=== PATIENT | female | born 1970 | race Caucasian/White ===

== ENCOUNTER → 2017-11-08 10:43 | Outpatient (CLI) | payer BC, SELFPAY ==
[2017-11-08 12:34] LABS: Vitamin D,25 Hydroxy 65.6 ng/mL (29.95-100.01)
[2017-11-08 12:39] LABS: ALB/GLOB Ratio 0.8 RATIO (0.9-2.4); AST(SGOT) 23 U/L (15-37); Alanine Aminotransfer ALT/SGPT 24 U/L (13-56); Albumin, Serum 3.7 g/dL (3.2-5.0); Alkaline Phosphatase 104 U/L (45-117); Anion Gap 6 (5-15); BUN 24 mg/dL (7-18); BUN/Creat Ratio 23.3 RATIO (10-20); Calcium,Total 9.4 mg/dL (8.5-10.1); Chloride 105 mmol/L (98-107); Cholesterol 257 mg/dL (200); Creatinine, Serum 1.03 mg/dL (0.55-1.02); EST Glomerular Filtration Rate 61 mL/min (>60); Est Glom Filt Rate - Afr Amer 74 mL/min (>60); Globulin 4.4 g/dL (2.2-4.2); Glucose 83 mg/dL (74-106); High Density Lipoprotein 50 mg/dL; Potassium 4.1 mmol/L (3.5-5.1); Protein, Total 8.1 g/dL (6.4-8.2); Sodium Level 139 mmol/L (136-145); Thyroid Stim Hormone (TSH) 1.73 uIU/mL (0.358-3.74); Triglycerides 143 mg/dL; Very Low Density Lipoprotein 29 mg/dL (5-40)
== END ==
PROVIDERS: Family Provider Family Medicine; PCP Family Medicine; Visit Provider Family Medicine
DX: R00.2 Palpitations (principal); Z13.220 Encounter for screening for lipoid disorders; Z13.21 Encounter for screening for nutritional disorder
CPT/HCPCS: 36415; 80053; 80061; 82306; 84443

== ENCOUNTER → 2018-03-15 14:12 | Outpatient (CLI) | payer BC, SELFPAY ==
--- NOTE | 2018-03-15 | EMB_PTH ---
PATIENT: MARIA A BEGUM LOC: JERE #:[id number] AGE/SX: 54/F ROOM: RE03/15/[address]: Dr. Lilian Pickard MD : 1970 BED: DIS: SPEC #: [id number] RECD: 03/15/18 14:37 STATUS: VERONA REInes #: [id number] PENNIE: 03/15/18 00:[address]: Lilian Toney DEPT: SURGICAL PATHOLOGY RECD BY: Roque Beal ENTERED: 03/15/18 14:37 SP TYPE: ENDOM BX/C EFREN DR: Dr. Bernabe Roberto MD Tissues: Endometrium, NOS Procedures: Surgery Specimen Level IV HEADER OPERATION: Endometrial biopsy PRE-OP DIAGNOSIS: N92.1; LMP 02/22/18 TISSUE SUBMITTED: Endometrial biopsy MICROSCOPIC DIAGNOSIS Endometrial biopsy: Mildly disordered endometrium with weakly proliferative pattern, glandular and stromal breakdown and surface syncytial change. No evidence of endometrial hyperplasia. CE:li 03/16/18 COMMENT Case has been reviewed in consultation with Dr. Michele who concurs with the above diagnosis. IDC:AM MICROSCOPIC DESCRIPTION Slides are reviewed. GROSS DESCRIPTION Received is one container labeled with the patient's name and not further designated. The specimen consists of multiple irregular fragments of light corcoran soft tissue that in aggregate measure 2.4 x 1.0 x 0.3 cm. The specimen is totally submitted in one cassette. / AM:li 03/15/18 TC:5 CPT: 24230
[2018-03-18 13:54] LABS: HPV APTIMA, High Risk Negative (Negative)
--- OUTSIDE RECORDS SUMMARY | 2018-05-17 19:49 | XMS RPT_ITS ---
:1970 Author Organization [facility] Care Team Providers Name Role Phone Lilian Lazaro Attending Unavailable Lilian Lazaro Referring Unavailable Bernabe Roberto Primary Care Unavailable Bernabe Roberto Attending Unavailable Bernabe Roberto Referring Unavailable Bernabe Roberto Primary Care Unavailable PROBLEMS PROBLEMS DATE TYPE CONDITION / CODE ATTENDING STATUS SOURCE 03/15/2018 Unknown Z01.419 - Encounter Hussain Lazaro [place] for gynecological [facility] (general) (routine) Repository without abnormal findings / Z01.419(ICD-10) 03/15/2018 Unknown Z12.4 - Encounter Hussain Lazaro for screening for [facility] malignant neoplasm [facility] of cervix / Repository Z12.4(ICD-10) 03/15/2018 Unknown N92.1 - Excessive Tejas Active [place] and frequent [facility] menstruation with Hospital irregular cycle / Repository N92.1(ICD-10) PROCEDURES PROCEDURES No Procedure Records FoundRESULTS RESULTS PAP IG HPV APTIMA Collected: 03/15/2018 Status: F Source: [place] 16/18,45 10:00 AM [facility] REPOSITORY Order Comment: CYTOLOGY INFORMATION: - CLINICAL INFORMATION: - DATE LMP/MENOPAUSE: 02/22/18 - COLLECTION VIAL: Thin Prep 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 of containers..01 ThinPrep Vial TYPE CODE TESTS RESULT OUT OF RANGE REFERENCE UNITS LAB L7400.0800 . Normal DIAGN Comment Result Comment: NEGATIVE FOR INTRAEPITHELIAL LESION OR MALIGNANCY. SPECIMEN REPROCESSED FOR INTERPRETATION USING GLACIAL ACETIC ACID (GAA). LAB L7400.0900 . Normal ADEQ Comment Result Comment: Satisfactory for evaluation. Endocervical and/or squamous metaplastic cells (endocervical component) are present. Areas of partially obscuring blood are present. LAB L7400.1400 . Normal PERFORM Comment Result Comment: Emre Campbell, Bakery Team Leader (ASCP) LAB L7400.2575 . Normal TEST METHOD Comment Result Comment: This liquid based ThinPrep(R) pap test was screened with the use of an image guided system. LAB L7400.2600 . Normal . COMM LAB L7400.2700 . Normal PAPSMR Comment Result Comment: The Pap smear is a screening test designed to aid in the detection of premalignant and malignant conditions of the uterine cervix. It is not a diagnostic procedure and should not be used as the sole means of detecting cervical cancer. Both false-positive and false-negative reports do occur. LAB L7400.2760 Negative Normal HPV APTIMA, Negative HR Result Comment: This test detects fourteen high-risk HPV types (16/18/31/33/35/39/45/ 51/52/56/58/59/66/68) without differentiation. Performed at: [facility] [address] [id number] Ethics Instructor: Kaya Winn MD, Phone: [phone] Performed at: =[facility] [id number] Ethics Instructor: Kaya Winn MD, Phone: [phone] Performed By: #### L7400.0280 #### [facility] (refer to report for specific site) refer to report for address and phone number ENDOMETRIAL BX/CURETTINGS Observed: 03/15/2018 Status: F Source: [place] 12:00 AM [facility] REPOSITORY Patient: MARIA A BEGUM : 1970 (47/F) Acct Num: [id number] Phys: Tejas KANG,Summer Unit Num: [id number] Loc: LABSPEC Specimen: [id number] Received: 03/15/18 - 1437 Spec Type: ENDOM BX/C TISSUES 1 TISSUES: Endometrium, NOS COMMENT Case has been reviewed in consultation with Dr. Michele who concurs with the above diagnosis. IDC:AM GROSS DESCRIPTION Received is one container labeled with the patient's name and not further designated. The specimen consists of multiple irregular fragments of light corcoran soft tissue that in aggregate measure 2.4 x 1.0 x 0.3 cm. The specimen is totally submitted in one cassette. / AM: 03/15/18 TC:5 CPT: 67843 HEADER OPERATION: Endometrial biopsy PRE-OP DIAGNOSIS: N92.1; LMP 02/22/18 TISSUE SUBMITTED: Endometrial biopsy MICROSCOPIC DESCRIPTION Slides are reviewed. MICROSCOPIC DIAGNOSIS Endometrial biopsy: Mildly disordered endometrium with weakly proliferative pattern, glandular and stromal breakdown and surface syncytial change. No evidence of endometrial hyperplasia. CE: 03/16/18 Signed Bernabe Pool MD <signature on file> Performed By: #### PEMB #### [facility] [address] [place], [address] VITAMIN D,25 HYDROXY Collected: 11/08/2017 Status: F Source: [place] 10:47 AM [facility] REPOSITORY Order Comment: Order Date: 11/04/17 Order Info: [id number] - VITD25 TYPE CODE TESTS RESULT OUT OF RANGE REFERENCE UNITS LAB L506.1000 29.95-100.01 ng/mL Normal Vitamin D 65.6 25-OH Result Comment: Vitamin D 25(OH) Status Range Deficiency <20 ng/mL (50nmol/L) Insuffciency 20 - 30 ng/mL (50 - 75 nmol/L) Sufficiency 30 - 100 ng/mL (75 - 250 nmol/L) Toxicity >100 ng/mL (>250 nmol/L) Performed By: #### L506.1000, L500.4050, L500.4100, L501.9520 #### [facility] [address] [place], [address] COMPREHENSIVE METABOLIC Collected: 11/08/2017 Status: F Source: [place] FAUL[place]NER 10:47 AM [facility] REPOSITORY Order Comment: Order Date: 11/04/17 Order Info: 0786-1 - CMP Order Info: [id number] - LIPID Order Info: 3016-3 - TSH TYPE CODE TESTS RESULT OUT OF RANGE REFERENCE UNITS LAB L501.0100 74-106 mg/dL Normal GLU 83 Result Comment: Please note revised GLUCOSE reference range effective 2017. LAB L501.1000 7-18 mg/dL High BUN 24 LAB L501.1100 0.55-1.02 mg/dL High CREAT,SERUM 1.03 Result Comment: The validity of the calculated GFR AND GFRAA in patients over 70 years has not been determined. Clinical correlation is essential. LAB L501.1110 >60 mL/min Normal EST GFR 61 Result Comment: Non- GFR Calc LAB L501.1115 >60 mL/min Normal EST GFR - AA 74 Result Comment: GFR Calc LAB L501.1300 10-20 RATIO High BUN/CRE 23.3 LAB L501.1500 6.4-8.2 g/dL T Normal PROT 8.1 LAB L501.1800 3.2-5.0 g/dL Normal ALB 3.7 LAB L501.1950 2.2-4.2 g/dL High GLOB 4.4 LAB L501.2000 0.9-2.4 RATIO Low A/G 0.8 LAB L501.2200 8.5-10.1 mg/dL CA Normal 9.4 LAB L501.4100 15-37 U/L Normal AST 23 LAB L501.4305 45-117 U/L Normal ALK P 104 LAB L501.4405 13-56 U/L Normal ALT 24 LAB L501.4600 0.20-1.00 mg/dL T Normal BILI 0.30 LAB L501.5300 136-145 mmol/L NA Normal 139 LAB L501.5600 3.5-5.1 mmol/L K Normal 4.1 LAB L501.5900 98-107 mmol/L CL Normal 105 LAB L501.6100 21.0-32.0 mmol/L Normal CO2 28.0 LAB L501.6200 5-15 Normal GAP 6 Performed By: #### L506.1000, L500.4050, L500.4100, L501.9520 #### [facility] [address] [place], [place], [id number] LIPID PROFILE Collected: 11/08/2017 Status: F Source: [place] 10:47 AM [facility] REPOSITORY Order Comment: Order Date: 11/04/17 Order Info: [id number] - CMP Order Info: [id number] - LIPID Order Info: 3016-3 - TSH TYPE CODE TESTS RESULT OUT OF RANGE REFERENCE UNITS LAB L501.4900 200 mg/dL High CHOL 257 Result Comment: <200 mg/dL Desirable 200-240 mg/dL Borderline >240 mg/dL High Risk LAB L501.5000 mg/dL Normal TRIG 143 Result Comment: The drugs N-Acetylcysteine and Metamizole may falsely depress this assay. Serum Triglycerides Reference Interval Normal <150 mg/dL Borderline high 150 - 199 mg/dL High 200 - 499 mg/dL Very High > or = 500 mg/dL LAB L501.6400 mg/dL Normal HDL 50 Result Comment: The drugs N-Acetylcysteine and Metamizole may falsely depress this assay. Reference Range HDL <40 mg/dL Low HDL Cholesterol HDL >or= 60 mg/dL High HDL Cholesterol LAB L501.6500 0-130 mg/dL High LDL 178 LAB L501.6600 5-40 mg/dL Normal VLDL 29 Performed By: #### L506.1000, L500.4050, L500.4100, L501.9520 #### [facility] [address] [place], [place], [address] THYROID STIM HORMONE Collected: 11/08/2017 Status: F Source: [place] (TSH) 10:47 AM [facility] REPOSITORY Order Comment: Order Date: 11/04/17 Order Info: [id number] - CMP Order Info: [id number] - LIPID Order Info: 3016-3 - TSH TYPE CODE TESTS RESULT OUT OF RANGE REFERENCE UNITS LAB L501.9520 0.358-3.74 uIU/mL Normal TSH 1.73 Performed By: #### L506.1000, L500.4050, L500.4100, L501.9520 #### [facility] [address], [address] ALLERGIES ALLERGIES DATE TYPE / CODE NAME / CODE REACTION SEVERITY SOURCE 01/14/2013 Drug Sulfa Unknown Unknown [facility] Allergy/4160 (Sulf[facility] 85880(SNOMED Antibiotics)/ Repository CT) [id number](RX NORM) ENCOUNTERS ENCOUNTERS ADMIT/DISCHARGE ACCOUNT ADMITTING ENCOUNTER LOCATION SOURCE NUMBER CLASS 03/15/2018 [id number] Ambulatory [place] 5 [facility] ing:LABSPEC Repository 11/08/2017 [id number] Amb[place] [facility] ing:MTLAB Repository PAYERS PAYERS ENCOUNTER GUARANTOR PAYER SUBSCRIBER SOURCE 03/15/2018 MARIA A CLARKE Primary WHIT REEDDOB: [place] Insurance:[id number] [address]Ryd: [id number] Repository nicola Date:[id number] () [address], [place] [address]MY: 03/15/2018 Secondary NOT GIVENUNK [place] Insurance:SELF PAY [facility] Number: Effective Repository Date:2018-03-15 11/08/2017 MARIA A CLARKE Primary WHIT REEDDOB: [place] Insurance:[id number] [id number]: [id number] Repository nicola Date:[id number] () [address], [place] [address]OG: 11/08/2017 Secondary NOT GIVENUNK [place] Insurance:SELF PAY [facility] Number: Effective Repository Date:2017-11-08
== END ==
PROVIDERS: Family Provider Family Medicine; PCP Family Medicine; Referring Provider Obstetrics & Gynecology; Visit Provider Obstetrics & Gynecology
DX: Z12.4 Encounter for screening for malignant neoplasm of cervix (principal); N92.1 Excessive and frequent menstruation with irregular cycle
CPT/HCPCS: 87624; 88175; 88305; G0145

== ENCOUNTER 2018-06-19 17:49 | Emergency (ER) | payer BC, SELFPAY ==
[2018-06-19 17:50] VITALS: BP 153/89; PULSE 89; RESP 16; TEMP 36.8; BMI 33.6
--- NOTE | 2018-06-19 18:54 | CT_ITS ---
STUDY: CTA NECK WITH CONTRAST REASON FOR EXAM: Female, 47 years old. Weakness right leg, tingling in the head RADIATION DOSAGE (If Supplied By Facility): CTDIvol = ( 25.13 ) mGy, DLP = ( 1451.10 ) mGycm TECHNIQUE: CT angiography with multi-detector data acquisition was performed from the aortic arch to the skull base following intravenous administration of 100ML IV Isovue 370. MIP images were reconstructed from the axial data set. Post-processing of the angiographic images was performed, with multiplanar reformation and 3D reconstruction. Individualized dose optimization techniques were used for this CT. COMPARISON: None. FINDINGS: AORTIC ARCH: Normal visualized aortic arch. Normal origins of the brachiocephalic, left common carotid, and left subclavian arteries. RIGHT CAROTID ARTERIES: Normal right common carotid artery (CCA). Normal right common carotid bulb. Normal origin of the right internal carotid (ICA) artery without a hemodynamically significant stenosis. Normal visualized cervical portion of the right internal carotid artery. Normal origin of the right external carotid artery (ECA). LEFT CAROTID ARTERIES: Normal left common carotid artery (CCA). Normal left common carotid bulb. Normal origin of the left internal carotid (ICA) artery without a hemodynamically significant stenosis. Normal visualized cervical portion of the left internal carotid artery. Normal origin of the left external carotid artery (ECA). VERTEBRAL ARTERIES: Normal bilateral vertebral arteries. There is a space narrowing and anterior and posterior osteophytes C5-C6. There are degenerative changes at C1-C2. CT/CTA Neck W/WO Contrast IMPRESSION: Normal bilateral cervical carotid and vertebral arteries. Multilevel spondylosis cervical spine Electronically Signed: Enrique Alcaraz, at 20:41 EDT Tel , Service support ,
--- NOTE | 2018-06-19 18:54 | EKG12_ITS ---
Test Reason : HEADACHE Blood Pressure : / mmHG Vent. Rate : 081 BPM Atrial Rate : 081 BPM P-R Int : 148 ms QRS Dur : 090 ms QT Int : 376 ms P-R-T Axes : 046 047 044 degrees QTc Int : 436 ms Normal sinus rhythm Normal ECG Confirmed by SONIA KANG, JACK ([id number]), editor sound CARMEN REVELES ([id number]) on 06/21/2018 11:17:09 AM Referred By: CATALINA Confirmed By:JACK SCOTT MD
--- NOTE | 2018-06-19 18:54 | CT_ITS ---
STUDY: CTA OF THE BRAIN REASON FOR EXAM: Female, 47 years old. Headache right leg weakness RADIATION DOSAGE (If Supplied By Facility): CTDIvol = ( 25.13 ) mGy, DLP = ( 1451.10 ) mGycm TECHNIQUE: CT angiography was performed with a multi-detector CT scanner. Data acquisition was obtained from the skull base through the vertex following intravenous administration of 100ML IV Isovue 370. MIP images were reconstructed from the axial data set. Post-processing of the angiographic images was performed, with multiplanar reformation and 3D reconstruction. Individualized dose optimization techniques were used for this CT. COMPARISON: None. FINDINGS: Normal bilateral petrous carotid arteries. Normal right cavernous carotid artery with a normal supraclinoid bifurcation. Normal left cavernous carotid artery with a normal supraclinoid bifurcation. Normal right A1 segments of the anterior cerebral artery. Normal left A1 segments of the anterior cerebral artery. Normal intact anterior communicating artery (ACOM). Normal bilateral A2 segments of the anterior cerebral arteries. Normal right M1 and M2 segments of the middle cerebral arteries, with a normal M1 bifurcation. Normal left M1 and M2 segments of the middle cerebral arteries, with a normal M1 bifurcation. Normal bilateral vertebral arteries. Normal basilar artery with a normal basilar bifurcation. The visualized bilateral superior cerebellar (SCA) arteries are normal. Normal bilateral P1, P2 and visualized P3 segments of the posterior cerebral arteries. There is no demonstrated aneurysm of the skull valley of [place]. There is no demonstrated abnormality of the visualized brain. There is multilevel spondylosis cervical spine with disc space narrowing, anterior and posterior osteophytes. CT/CTA Head W/WO Contrast IMPRESSION: Normal skull valley of [place] without a demonstrated aneurysm or hemodynamically significant stenosis. Significant multilevel cervical spondylosis Electronically Signed: Enrique Alcaraz, at 20:33 EDT Tel , Service support ,
--- NOTE | 2018-06-19 18:57 | ED.VISSUMM ---
- ER Visit Summary Date of Service: 06/19/18 Chief Complaint: Burning head sensation and right leg felt like a wet noodle History of Present Illness: The patient is a 47 F surgery of anxiety and mitral valve prolapse. Patient states her were walking in an area store. She had sudden onset of a burning type of sensation on top of her head that she does not describe as a headache or pain. And then felt like her right leg had an odd sensation in it like she was having trouble controlling it. She was walking at the time did not fall. She denies any weakness. Denies any visual change. Currently is completely symptom-free. States the whole episode lasted 1 to 2 minutes. And it occurred around 5:30 PM tonight. No prior history. Physical Examination: Vital signs are stable afebrile. Initial blood pressure 133/88. HEENT exam unremarkable. Pupils round react light. No facial droop. Normal speech. Neck nontender. Lungs clear to auscultation bilaterally. Heart regular rhythm no murmur. Abdomen soft and nontender. Normal bowel sounds no peritoneal signs. Patient moving all 4 extremities. Neurovascular intact. Neurologically she is awake alert. No focal motor or sensory deficits. Normal speech. No failure treatment. Bilateral equal symmetrical 5 out of 5 manager data center strength. Bilateral equal symmetrical dorsi and plantar flexion. Fingertip to nose and [id number] within normal limits. Normal neurologic exam. Test Results: CBC is normal. BMP is normal. CTA head read as normal by the radiologist and reviewed by me. CTA neck also read as normal by the radiologist and reviewed by me. Emergency Department Course and Treatment: Patient is completely normal exam. I think it is unlikely but the concern would be for an acute neurovascular event. Should be worked up appropriately. If the work-up is negative I will cover with her being discharged home. Repeat exam patient is doing well at 2214 exam normal she will be discharged home with outpatient follow-up. Treatment Plan: Follow-up with primary care physician Dr. Lincoln Roberto Disposition: dc Impression: Acute atypical head sensation of uncertain etiology History of MVP and anxiety This note was generated with [employer] computeration software. It may contain incorrect words, spelling, and punctuation that were not noted in review of the chart prior to signing ED Disposition - Plan for ED Patient: Referrals: Melo Roberto MD [Primary Care Provider] -
[2018-06-19 19:20] LABS: Hemoglobin 12.7 g/dl (12.0-15.0); Mean Corp Hgb Conc 33.4 g/gl (32-36); Mean Corpuscular Hgb 28.5 pg (27.0-32.0); Mean Corpuscular Volume 85.2 fL (81-99); Mean Platelet Vol. 9.2 fl (6.2-12.0); Platelet Count 225 K/mm3 (150-450); RBC Distribution Width CV 13.5 % (11.6-14.6); RBC Distribution Width SD 41.6 fl (35.1-43.9); Red Blood Count 4.46 M/mm3 (4.2-5.4); White Blood Count 6.5 K/mm3 (4.4-11.0)
[2018-06-19 19:24] LABS: Scan Indicated on CBC? Y/N NO
[2018-06-19 19:34] LABS: Anion Gap 6 (5-15); BUN 15 mg/dL (7-18); BUN/Creat Ratio 15.3 RATIO (10-20); Calcium,Total 8.9 mg/dL (8.5-10.1); Chloride 103 mmol/L (98-107); Creatinine, Serum 0.98 mg/dL (0.55-1.02); EST Glomerular Filtration Rate 64 mL/min (>60); Est Glom Filt Rate - Afr Amer 78 mL/min (>60); Estimated Creatinine Clearance 68.27 ml/min; Glucose 90 mg/dL (74-106); Potassium 3.6 mmol/L (3.5-5.1); Sodium Level 137 mmol/L (136-145)
[2018-06-19 20:04] VITALS: BP 136/80; PULSE 89; RESP 18; O2SAT 100
[2018-06-19 21:44] VITALS: BP 143/75; PULSE 95; RESP 20; O2SAT 97
--- NOTE | 2018-06-19 22:16 | ED.DEP ---
ED Disposition - Plan for ED Patient: Disposition: Home or Assisted Living Instructions: ED Weakness [facility] Referrals: Melo Roberto MD [Primary Care Provider] - 3-5 Days if not improving Additional Instructions: Follow-up with your doctor if you have any further problems. Your labs and CAT scans today were normal.
[2018-06-19 22:20] VITALS: BP 121/69; PULSE 89; O2SAT 97
== END 2018-06-19 22:20 | disposition home or self-care (01) ==
PROVIDERS: Emergency Provider Emergency Medicine; Family Provider Family Medicine; PCP Family Medicine
DX: R20.8 Other disturbances of skin sensation (principal); F41.9 Anxiety disorder, unspecified; Z79.899 Other long term (current) drug therapy
CPT/HCPCS: 70496; 70498; 80048; 85027; 93005; 99284; Q9967; A4216

== ENCOUNTER → 2018-06-20 10:55 | Outpatient (CLI) | payer BC, SELFPAY ==
[2018-06-19 17:50] VITALS: BMI 33.6
--- NOTE | 2018-06-20 10:57 | BI_ITS ---
MAMMOGRAPHY - BILATERAL SCREENING REASON FOR EXAM: Female, 47 years old. Routine annual screening examination. PERTINENT HISTORY: Non-contributory. TECHNIQUE: Digital bilateral breast carole (3D mammographic acquisition) in the CC and MLO projections. 2-D mediolateral oblique (MLO) and craniocaudad (CC) views of both breasts were obtained. CAD: Full Field Digital Mammography with Computer Added Detection was performed. COMPARISON: None. Baseline examination. FINDINGS: Breast Composition: The breasts are heterogeneously dense, which may obscure small masses. There are no dominant masses or suspicious calcifications. No other significant abnormalities are identified. BI/SCREENING MAMM (CAD), BILAT IMPRESSION: Negative screening mammogram. Yearly followup mammogram recommended. (A) ASSESSMENT CATEGORY: BIRADS Category 1: Negative. A letter regarding these results will be sent to the patient by the facility within 30 days. Approximately 10% of breast cancers are not detected by mammography. A normal mammogram should not delay biopsy of a clinically suspicious abnormality. [id number] Electronically Signed: Silvano Kimball, at 13:08 EDT , Service support ,
== END ==
PROVIDERS: Family Provider Family Medicine; PCP Family Medicine; Referring Provider Obstetrics & Gynecology; Visit Provider Obstetrics & Gynecology
DX: Z12.31 Encounter for screening mammogram for malignant neoplasm of breast (principal)
CPT/HCPCS: 77063; 77067

== ENCOUNTER → 2018-11-11 10:00 | Outpatient (CLI) | payer BC, SELFPAY ==
[2018-11-11 13:23] LABS: Vitamin D,25 Hydroxy 64.3 ng/mL (29.95-100.01)
[2018-11-11 13:57] LABS: Anion Gap 5 (5-15); BUN 18 mg/dL (7-18); BUN/Creat Ratio 15.9 RATIO (10-20); Calcium,Total 9.6 mg/dL (8.5-10.1); Chloride 106 mmol/L (98-107); Cholesterol 224 mg/dL (200); Creatinine, Serum 1.13 mg/dL (0.55-1.02); EST Glomerular Filtration Rate 54 mL/min (>60); Est Glom Filt Rate - Afr Amer 66 mL/min (>60); Glucose 83 mg/dL (74-106); High Density Lipoprotein 49 mg/dL; Potassium 3.9 mmol/L (3.5-5.1); Sodium Level 139 mmol/L (136-145); Thyroid Stim Hormone (TSH) 2.14 uIU/mL (0.358-3.74); Triglycerides 144 mg/dL; Very Low Density Lipoprotein 29 mg/dL (5-40)
== END ==
PROVIDERS: Family Provider Family Medicine; PCP Family Medicine; Referring Provider Family Medicine; Visit Provider Family Medicine
DX: Z00.00 Encounter for general adult medical examination without abnormal findings (principal); Z13.21 Encounter for screening for nutritional disorder; Z13.220 Encounter for screening for lipoid disorders
CPT/HCPCS: 36415; 80048; 80061; 82306; 84443

== ENCOUNTER → 2019-11-27 09:58 | Outpatient (CLI) | payer BC, SELFPAY ==
[2019-11-27 12:54] LABS: Anion Gap 5 (5-15); BUN 16 mg/dL (7-18); BUN/Creat Ratio 15.1 RATIO (10-20); Calcium,Total 9.3 mg/dL (8.5-10.1); Chloride 105 mmol/L (98-107); Cholesterol 274 mg/dL (200); Creatinine, Serum 1.06 mg/dL (0.55-1.02); EST Glomerular Filtration Rate 58 mL/min (>60); Est Glom Filt Rate - Afr Amer 71 mL/min (>60); Glucose 84 mg/dL (74-106); High Density Lipoprotein 53 mg/dL; Potassium 4.1 mmol/L (3.5-5.1); Sodium Level 139 mmol/L (136-145); Thyroid Stim Hormone (TSH) 2.23 uIU/mL (0.358-3.74); Triglycerides 149 mg/dL; Very Low Density Lipoprotein 30 mg/dL (5-40)
== END ==
PROVIDERS: PCP Family Medicine; Referring Provider Family Medicine; Visit Provider Family Medicine
DX: Z00.00 Encounter for general adult medical examination without abnormal findings (principal); Z13.21 Encounter for screening for nutritional disorder; Z13.220 Encounter for screening for lipoid disorders
CPT/HCPCS: 36415; 80048; 80061; 82306; 84443

== ENCOUNTER → 2020-05-08 06:19 | Outpatient (CLI) | payer BC, SELFPAY ==
--- NOTE | 2020-05-08 06:20 | MRI_ITS ---
STUDY: MRI RIGHT REARFOOT WITHOUT CONTRAST REASON FOR EXAM: Right heel pain for 6 months. TECHNIQUE: Standardized fat and water weighted pulse sequences were obtained in all 3 orthogonal planes. COMPARISON: Intraoperative images 01/16/2013. FINDINGS: Normal subcutis adipose space. There is orthopedic hardware in the distal fibula and medial malleolus. Normal visualized posterior tibialis tendon, the submalleolar posterior tibialis tendon is obscured by artifact from orthopedic hardware. Normal flexor digitorum longus tendon. Normal flexor hallucis longus tendon. Normal visualized peroneus longus and brevis tendons. Normal tibialis anterior tendon. Normal extensor hallucis longus tendon. Normal extensor digitorum longus tendons. Normal Achilles tendon and teno-osseous insertion. There is periaponeurotic edema of the lateral and central cords of the plantar fascia and mild interstitial edema in the central cord of the plantar fascia (inversion recovery sagittal images 12-17). There is mild reactive bone edema in the posterior tuberosity of the calcaneus at the origin of the plantar fascia (inversion recovery sagittal images 12-16). Normal intrinsic muscles of the rearfoot. The lateral ligaments of the ankle are obscured by metallic artifact. Normal subtalar ligaments and sinus tarsi. The deltoid ligament is obscured by metallic artifact. Normal plantar calcaneonavicular (spring) ligament. There is an osteochondral lesion of the superior aspect of the medial talar dome (T1 sagittal image 17) measuring 1.5 x 0.6 cm (AP x transverse) with cystic change of the fragment and parent bone (inversion recovery sagittal image 17). Normal subtalar articulations. Normal talonavicular articulation. Normal calcaneocuboid articulation. Normal navicular-cuneiform articulations. MRI/Lower Ext/No Jt/w/o IMPRESSION: Plantar fasciitis with mild reactive bone edema in the posterior tuberosity of the calcaneus. Osteochondral lesion of the medial talar dome. Electronically Signed: Win Lainez MD at 8:31 EDT Tel , Service support ,
== END ==
PROVIDERS: PCP Family Medicine; Referring Provider Family Medicine; Visit Provider Family Medicine
DX: M79.671 Pain in right foot (principal)
CPT/HCPCS: 73718

== ENCOUNTER → 2020-12-12 09:42 | Outpatient (CLI) | payer BC, SELFPAY ==
[2020-12-12 12:17] LABS: Vitamin D,25 Hydroxy 59.6 ng/mL
[2020-12-12 12:29] LABS: Anion Gap 4 (5-15); BUN 19 mg/dL (7-18); Calcium,Total 9.4 mg/dL (8.5-10.1); Chloride 107 mmol/L (98-107); Cholesterol 249 mg/dL (200); EST Glomerular Filtration Rate 62 mL/min (>60); Est Glom Filt Rate - Afr Amer 75 mL/min (>60); Glucose 87 mg/dL (74-106); High Density Lipoprotein 51 mg/dL; Potassium 4.1 mmol/L (3.5-5.1); Sodium Level 139 mmol/L (136-145); Thyroid Stim Hormone (TSH) 1.69 uIU/mL (0.358-3.74); Triglycerides 142 mg/dL; Very Low Density Lipoprotein 28 mg/dL (5-40)
== END ==
PROVIDERS: PCP Family Medicine; Referring Provider Family Medicine; Visit Provider Family Medicine
DX: E78.5 Hyperlipidemia, unspecified (principal); Z13.21 Encounter for screening for nutritional disorder
CPT/HCPCS: 36415; 80048; 80061; 82306; 84443

== ENCOUNTER → 2021-01-22 | Outpatient (CLI) | payer BC, SELFPAY | END | disposition home or self-care (01) | PROVIDERS: PCP Family Medicine; Referring Provider Family Medicine; Visit Provider Family Medicine | DX: U07.1 COVID-19 (principal) | CPT/HCPCS: 87635; U0005; U0003 ==

== ENCOUNTER → 2021-12-18 | Outpatient (CLI) | payer BC, SELFPAY ==
[2021-12-18 12:31] LABS: Vitamin D,25 Hydroxy 68.5 ng/mL
[2021-12-18 12:50] LABS: Anion Gap 5 (5-15); BUN 16 mg/dL (7-18); BUN/Creat Ratio 15.8 RATIO (10-20); Calcium,Total 9.7 mg/dL (8.5-10.1); Chloride 107 mmol/L (98-107); Cholesterol 248 mg/dL (200); Creatinine, Serum 1.01 mg/dL (0.55-1.02); EST Glomerular Filtration Rate 61 mL/min (>60); Est Glom Filt Rate - Afr Amer 74 mL/min (>60); Glucose 91 mg/dL (74-106); High Density Lipoprotein 49 mg/dL; Potassium 4.3 mmol/L (3.5-5.1); Sodium Level 140 mmol/L (136-145); Thyroid Stim Hormone (TSH) 1.91 uIU/mL (0.358-3.74); Triglycerides 160 mg/dL; Very Low Density Lipoprotein 32 mg/dL (5-40)
== END | disposition home or self-care (01) ==
LOC: MTLAB 09:59
PROVIDERS: PCP Family Medicine; Referring Provider Family Medicine; Visit Provider Family Medicine
DX: Z00.00 Encounter for general adult medical examination without abnormal findings (principal)
CPT/HCPCS: 36415; 80048; 80061; 82306; 84443

== ENCOUNTER → 2022-12-24 | Outpatient (CLI) | payer BC, SELFPAY ==
[2022-12-24 12:41] LABS: Anion Gap 3 (5-15); BUN 18 mg/dL (7-18); BUN/Creat Ratio 17.3 RATIO (10-20); Calcium,Total 9.4 mg/dL (8.5-10.1); Chloride 107 mmol/L (98-107); Cholesterol 250 mg/dL (200); Creatinine, Serum 1.04 mg/dL (0.55-1.02); EST Glomerular Filtration Rate 59 mL/min (>60); Est Glom Filt Rate - Afr Amer 71 mL/min (>60); Glucose 93 mg/dL (74-106); High Density Lipoprotein 54 mg/dL; Potassium 4.1 mmol/L (3.5-5.1); Sodium Level 138 mmol/L (136-145); Thyroid Stim Hormone (TSH) 2.21 uIU/mL (0.358-3.74); Triglycerides 167 mg/dL; Very Low Density Lipoprotein 33 mg/dL (5-40)
== END | disposition home or self-care (01) ==
PROVIDERS: PCP Family Medicine; Referring Provider Family Medicine; Visit Provider Family Medicine
DX: Z00.00 Encounter for general adult medical examination without abnormal findings (principal)
CPT/HCPCS: 36415; 80048; 80061; 82306; 84443

== ENCOUNTER → 2023-03-22 | Outpatient (CLI) | payer BC, SELFPAY ==
--- NOTE | 2023-03-22 11:04 | US_ITS ---
STUDY: ULTRASOUND OF THE FEMALE PELVIS - COMPLETE REASON FOR EXAM: Female, 52 years old. POLYP OF CERVIX LMP: Patient is postmenopausal. TECHNIQUE: Transvaginal TECHNICAL QUALITY: Adequate. COMPARISON: None. FINDINGS: The uterus is anteverted and is in a midline position. The uterus measures 8.1 cm x 5 cm x 4.5 cm. There is a Nabothian cyst of the cervix. The endometrium measures 2.7 mm in thickness, and is hyperechoic. There is no demonstrated endometrial mass. 2 fibroids are seen. The larger is in the superior aspect of the uterus and measures 2.4 cm x 2.4 cm x 2.1 cm. I.U.D. - The patient does not have an I.U.D. The right ovary is non-visualized. The left ovary is non-visualized. There is no fluid in the cul-de-sac. US/Transvaginal Non- IMPRESSION: 2 small fibroids are seen in the superior aspect of the uterus. No cervical polyp is visualized. Electronically Signed: Silvano Kimball MD at 14:51 EST ,
== END | disposition home or self-care (01) ==
LOC: US 11:01
PROVIDERS: PCP Family Medicine; Referring Provider Obstetrics & Gynecology; Visit Provider Obstetrics & Gynecology
DX: N84.1 Polyp of cervix uteri (principal)
CPT/HCPCS: 76830

== ENCOUNTER → 2023-04-15 | Outpatient (CLI) | payer BC, SELFPAY ==
--- NOTE | 2023-04-15 15:04 | BI_ITS ---
MAMMOGRAPHY - BILATERAL SCREENING REASON FOR EXAM: Female, 52 years old. Routine annual screening examination. PERTINENT HISTORY: Non-contributory. TECHNIQUE: Digital bilateral breast [place] (3D mammographic acquisition) in the CC and MLO projections. 2-D mediolateral oblique (MLO) and craniocaudad (CC) views of both breasts were obtained. CAD: Full Field Digital Mammography with Computer Added Detection was performed. COMPARISON: Comparison is made with prior study dated June 20, 2018. FINDINGS: Breast Composition: The breasts are heterogeneously dense, which may obscure small masses. There are no dominant masses or suspicious calcifications. No other significant abnormalities are identified. There has been no significant change since the prior study. BI/SCRN MAMM (CAD)W/[place] BILAT IMPRESSION: Stable bilateral screening mammogram. Yearly follow-up mammogram recommended. (A) ASSESSMENT CATEGORY: BIRADS Category 1: Negative. A letter regarding these results will be sent to the patient by the facility within 30 days. Approximately 10% of breast cancers are not detected by mammography. A normal mammogram should not delay biopsy of a clinically suspicious abnormality. [id number] Electronically Signed: Silvano Kimball MD at 15:46 EST ,
== END | disposition home or self-care (01) ==
LOC: OPBI 15:03
PROVIDERS: PCP Family Medicine; Referring Provider Family Medicine; Visit Provider Family Medicine
DX: Z12.31 Encounter for screening mammogram for malignant neoplasm of breast (principal)
CPT/HCPCS: 77063; 77067

== ENCOUNTER → 2024-02-04 | Outpatient (CLI) | payer BC, SELFPAY ==
[2024-02-04 11:59] LABS: Hematocrit 39.6 % (37-47); Hemoglobin 13.3 g/dL (12.0-15.0); Mean Corp Hgb Conc 33.6 g/dL (32-36); Mean Corpuscular Hgb 28.5 pg (27.0-32.0); Mean Corpuscular Volume 84.8 fL (81-99); Mean Platelet Vol. 9.6 fl (6.2-12.0); Platelet Count 215 K/mm3 (150-450); RBC Distribution Width SD 39.9 fl (35.1-43.9); Red Blood Count 4.67 M/mm3 (4.2-5.4); White Blood Count 4.7 K/mm3 (4.4-11.0)
[2024-02-04 12:42] LABS: Anion Gap 3 (5-15); BUN 19 mg/dL (7-18); BUN/Creat Ratio 17.9 RATIO (10-20); Chloride 105 mmol/L (98-107); Cholesterol 252 mg/dL (200); Creatinine, Serum 1.06 mg/dL (0.55-1.02); EST Glomerular Filtration Rate 57 mL/min (>60); Est Glom Filt Rate - Afr Amer 69 mL/min (>60); Glucose 93 mg/dL (74-106); High Density Lipoprotein 52 mg/dL; Potassium 4.3 mmol/L (3.5-5.1); Sodium Level 139 mmol/L (136-145); Triglycerides 156 mg/dL; Very Low Density Lipoprotein 31 mg/dL (5-40)
[2024-02-07 15:31] LABS: Vitamin D,25 Hydroxy 54.7 ng/mL
== END | disposition home or self-care (01) ==
LOC: MTLAB 09:53
PROVIDERS: PCP Family Medicine; Referring Provider Family Medicine; Visit Provider Family Medicine
DX: Z00.00 Encounter for general adult medical examination without abnormal findings (principal)
CPT/HCPCS: 36415; 80048; 80061; 82306; 84443; 85027

== ENCOUNTER → 2025-02-07 | Outpatient (CLI) | payer BC, SELFPAY ==
[2025-02-07 12:20] LABS: Hematocrit 39.4 % (37-47); Hemoglobin 13.2 g/dL (12.0-15.0); Immature Granulocytes Count 0.010 X10^3/uL (0.0-0.0); Mean Corp Hgb Conc 33.5 g/dL (32-36); Mean Corpuscular Volume 86.8 fL (81-99); Mean Platelet Vol. 9.7 fl (6.2-12.0); NRBC Flagged by Analyzer 0 % (0-5); Platelet Count 219 K/mm3 (150-450); RBC Distribution Width CV 13.0 % (11.6-14.6); RBC Distribution Width SD 40.8 fl (35.1-43.9); Red Blood Count 4.54 M/mm3 (4.2-5.4); White Blood Count 4.4 K/mm3 (4.4-11.0)
[2025-02-07 12:50] LABS: PTHIN 45 pg/mL (11-61)
[2025-02-07 13:26] LABS: Anion Gap 10 (5-15); BUN 17 mg/dL (4-19); BUN/Creat Ratio 15.2 RATIO (10-20); Calcium,Total 9.7 mg/dL (7.6-11.0); Carbon Dioxide 26.3 mmol/L (21.0-32.0); Chloride 104 mmol/L (98-108); Cholesterol 259 mg/dL (<=200); Glucose 93 mg/dL (70-99); Low Density Lipoprotein Calc. 182 mg/dL; Potassium 4.5 mmol/L (3.3-5.1); Triglycerides 166 mg/dL; Very Low Density Lipoprotein 33 mg/dL (5-40); Vitamin D,25 Hydroxy 60.2 ng/mL (30-100); cholesterol:hdl ratio screen 5.58
[2025-02-07 13:40] LABS: Iron 57 ug/dL (50-170)
--- OUTSIDE RECORDS SUMMARY | 2025-02-07 16:34 | XMS RPT_ITS | CCD ---
Author Organization [facility] Care Team Providers Care Orthotist/Prosthetist Name Role Phone Bernabe Roberto Primary Care Unavailable Lilian Toney Attending Unavailable Lilian Toney Referring Unavailable Bernabe Roberto Primary Care Unavailable Bernabe Roberto Attending Unavailable Bernabe Roberto Referring Unavailable Bernabe Roberto Primary Care Unavailable Bernabe Roberto Attending Unavailable Bernabe Roberto Referring Unavailable Allergies Allergy Classification Reported Allergen(s) Allergy Type Date of Onset Reaction(s) Facility (3 sources) Sulfonamides (Antibiotic) Allergy to substance 3 Unknown [facility] (1 source) Sulfonamides (Antibiotic) Drug allergy (disorder) 3 [facility] Repository Medications Current Medications Medication Drug Class(es) Dates Sig (Normalized) Sig (Original) 24 hr metoprolol succinate 25 mg extended release oral tablet (3 sources) beta-Adrenergic Chuck Start: 01-14-2013 take 25 mg by mouth once daily Metoprolol Succinate Active 25 MG PO DAILY January 14, 2013 12:00am sertraline 25 mg oral tablet (3 sources) Serotonin Reuptake Inhibitor Start: 01-14-2013 take 1 tablet by mouth once daily Sertraline (Zoloft) 25 MG tablet Active 25 MG PO DAILY January 14, 2013 12:00am traZODone hydrochloride 50 mg oral tablet (3 sources) Serotonin Reuptake Inhibitor Start: 01-14-2013 take 50 mg by mouth at bedtime Trazodone Active 50 MG PO AT BEDTIME January 14, 2013 12:00am Completed/Discontinued Medications Medication Drug Class(es) Dates Sig (Normalized) Sig (Original) acetaminophen 325 mg / oxyCODONE hydrochloride 5 mg oral tablet (3 sources) Opioid Agonist Start: 01-14-2013 End: 01-16-2013 take 1 tablet by mouth every four hours as needed Oxycodone-Acetamino phen Discontinued 1 TABLET PO EVERY 4 HOURS NEEDED January 14, 2013 12:00am January 16, 2013 3:51pm Problems Active Problems Problem Classification Problem Date Documented Da te Episodic/Chronic Other nutritional; endocrine; and metabolic disorders (3 sources) Body mass index 30+ - obesity; Translations: [Body mass index (BMI) 30.0-30.9, adult] 01-24-2021 Chronic Viral infection (3 sources) Disease caused by 2019-nCoV; Translations: [COVID-19] 01-24-2021 Episodic Past or Other Problems Problem Classification Problem Date Documented Da te Episodic/Chronic Other female genital disorders (1 source) Polyp of cervix uteri; Translations: [Polyp of cervix uteri] Onset: 03-25-2023 Episodic Other screening for suspected conditions (not mental disorders or infectious disease) (1 source) Encounter for screening mammogram for malignant neoplasm of breast; Translations: [Encounter for screening mammogram for malignant neoplasm of breast] Onset: 04-19-2023 Episodic Results Test Name Value Interpretation Reference Range Facility Vitamin D,25 Hydroxyon 02-06 Vitamin D 25-OH 54.7 ng/mL Normal [facility] Comment on above: Order Comment: Order Date: 12/17/23 Order Info: [id number] - VITD25 Result Comment: Nemo min D 25(OH) Status Range Deficiency <20 ng/mL (50nmol/L) Insufficiency 20 - 30 ng/mL (50 - 75 nmol/L) Sufficiency 30 - 100 ng/mL (75 - 250 nmol/L) Toxicity >100 ng/mL (>250 nmol/L) Performed By: #### L 100.0500, L501.9520, L500.4100, L506.1000, L500.2500, L400.0001 #### [facility] [address] [place] [address], [address] Basic Metabolic Profile (BMP )on 02-04-2024 BUN/CRE 17.9 RATIO Normal 12-11 [facility] Comment on above: Order Comment: Order Date: 12/17/23 Order Info: 0667-1 - BMP Order Info: [id number] - LIPID Order Info: 3016-3 - TSH Performed By: #### L 100.0500, L501.9520, L500.4100, L506.1000, L500.2500, L400.0001 #### [facility] [address] [place], [address] CA,Total 10.0 mg/dL Normal 8.5-10.1 [facility] Comment on above: Order Comment: Order Date: 12/17/23 Order Info: 666-02 - BMP Order Info: [id number] - LIPID Order Info: 3 - TSH Performed By: #### L 100.0500, L501.9520, L500.4100, L506.1000, L500.2500, L400.0001 #### [facility] [address] [place], [address] Chloride [Moles/Vol] 105 mmol/L Normal 98-107 [facility] Comment on above: Order Comment: Order Date: 12/17/23 Order Info: 666-02 - BMP Order Info: [id number] - LIPID Order Info: 3 - TSH Performed By: #### L 100.0500, L501.9520, L500.4100, L506.1000, L500.2500, L400.0001 #### [facility] [address] [place], [address] CO2 [Moles/Vol] 31.0 mmol/L Normal 21.0-32.0 [facility] Comment on above: Order Comment: Order Date: 12/17/23 Order Info: 666-02 - BMP Order Info: [id number] - LIPID Order Info: 3 - TSH Performed By: #### L 100.0500, L501.9520, L500.4100, L506.1000, L500.2500, L400.0001 #### [facility] [address] [place], [address] Creatinine [Mass/Vol] 1.06 mg/dL High 0.55-1.02 [facility] Comment on above: Order Comment: Order Date: 12/17/23 Order Info: 666-02 - BMP Order Info: - LIPID Order Info: [id number] - TSH Result Comment: The validity of the calculated GFR GFRAA in patients over 70 years has not been determined. Clinical correlation is essential. Performed By: #### L 100.0500, L501.9520, L500.4100, L506.1000, L500.2500, L400.0001 #### [facility] [address] [place], [address] EST GFR - AA 69 mL/min Normal >60 [facility] Comment on above: Order Comment: Order Date: 12/17/23 Order Info: 666-02 - BMP Order Info: - LIPID Order Info: 3015-04 - TSH Result Comment: Afri can Singaporean GFR Calc Performed By: #### L 100.0500, L501.9520, L500.4100, L506.1000, L500.2500, L400.0001 #### [facility] [address] [place], [address] GAP 3 Low 5-15 [facility] Comment on above: Order Comment: Order Date: 12/17/23 Order Info: 666-02 - BMP Order Info: - LIPID Order Info: [id number] - TSH Performed By: #### L 100.0500, L501.9520, L500.4100, L506.1000, L500.2500, L400.0001 #### [facility] [address] [place], [address] GFR/1.73 sq M.predicted among non-blacks MDRD (S/P/Bld) [Vol rate/Area] 57 mL/min/{1.73_m2} Low >60 [facility] Comment on above: Order Comment: Order Date: 12/17/23 Order Info: 666-02 - BMP Order Info: - LIPID Order Info: 3015-04 - TSH Result Comment: Non- GFR Calc Performed By: #### L 100.0500, L501.9520, L500.4100, L506.1000, L500.2500, L400.0001 #### [facility] [address] [place], [address] Glucose [Mass/Vol] 93 mg/dL Normal 74-106 [facility] Comment on above: Order Comment: Order Date: 12/17/23 Order Info: 666-02 - BMP Order Info: - LIPID Order Info: 3 - TSH Performed By: #### L 100.0500, L501.9520, L500.4100, L506.1000, L500.2500, L400.0001 #### [facility] [address] [place], [address] Potassium [Moles/Vol] 4.3 mmol/L Normal 3.5-5.1 [facility] Comment on above: Order Comment: Order Date: 12/17/23 Order Info: 666-02 - BMP Order Info: [id number] - LIPID Order Info: 3 - TSH Performed By: #### L 100.0500, L501.9520, L500.4100, L506.1000, L500.2500, L400.0001 #### [facility] [address] [place], [address] Sodium [Moles/Vol] 139 mmol/L Normal 136-145 [facility] Comment on above: Order Comment: Order Date: 12/17/23 Order Info: 666-02 - BMP Order Info: 79210-4 - LIPID Order Info: 3013 - TSH Performed By: #### L 100.0500, L501.9520, L500.4100, L506.1000, L500.2500, L400.0001 #### [facility] [address] [place], [address] Urea nitrogen [Mass/Vol] 19 mg/dL High 7-18 [facility] Comment on above: Order Comment: Order Date: 12/17/23 Order Info: 666-02 - BMP Order Info: [id number] - LIPID Order Info: 3016-3 - TSH Performed By: #### L 100.0500, L501.9520, L500.4100, L506.1000, L500.2500, L400.0001 #### [facility] [address] [place], [address] CBC-Complete Blood Cnt No Di ffon 02-04-2024 Erythrocyte distribution width (RBC) [Ratio] 13.0 % Normal 11.6-14.6 [facility] Comment on above: Order Comment: Order Date: 12/17/23 Order Info: [id number] - CBC Performed By: #### L 100.0500, L501.9520, L500.4100, L506.1000, L500.2500, L400.0001 #### [facility] [address] [place], [address] Hematocrit (Bld) [Volume fraction] 39.6 % Normal 37-47 [facility] Comment on above: Order Comment: Order Date: 12/17/23 Order Info: 11227-8 - CBC Performed By: #### L 100.0500, L501.9520, L500.4100, L506.1000, L500.2500, L400.0001 #### [facility] [address] [place], [address] Hemoglobin (Bld) [Mass/Vol] 13.3 g/dL Normal 12.0-15.0 [facility] Comment on above: Order Comment: Order Date: 12/17/23 Order Info: [id number] - CBC Performed By: #### L 100.0500, L501.9520, L500.4100, L506.1000, L500.2500, L400.0001 #### [facility] [address] [place], [address] MCH (RBC) [Entitic mass] 28.5 pg Normal 27.0-32.0 [facility] Comment on above: Order Comment: Order Date: 12/17/23 Order Info: [id number] - CBC Performed By: #### L 100.0500, L501.9520, L500.4100, L506.1000, L500.2500, L400.0001 #### [facility] [address] [place], [address] MCHC (RBC) [Mass/Vol] 33.6 g/dL Normal 32-36 [facility] Comment on above: Order Comment: Order Date: 12/17/23 Order Info: [id number] - CBC Performed By: #### L 100.0500, L501.9520, L500.4100, L506.1000, L500.2500, L400.0001 #### [facility] [address] [place], [address] MCV (RBC) [Entitic vol] 84.8 fL Normal 81-99 [facility] Comment on above: Order Comment: Order Date: 12/17/23 Order Info: [id number] - CBC Performed By: #### L 100.0500, L501.9520, L500.4100, L506.1000, L500.2500, L400.0001 #### [facility] [address] [place], [address] Platelet mean volume (Bld) [Entitic vol] 9.6 fL Normal 6.2-12.0 [facility] Comment on above: Order Comment: Order Date: 12/17/23 Order Info: [id number] - CBC Performed By: #### L 100.0500, L501.9520, L500.4100, L506.1000, L500.2500, L400.0001 #### [facility] [address] [place], [address] Platelets (Bld) [#/Vol] 215 10*3/uL Normal 150-450 [facility] Comment on above: Order Comment: Order Date: 12/17/23 Order Info: [id number] - CBC Performed By: #### L 100.0500, L501.9520, L500.4100, L506.1000, L500.2500, L400.0001 #### [facility] [address] [place], [address] RBC (Bld) [#/Vol] 4.67 10*6/uL Normal 4.2-5.4 [facility] Comment on above: Order Comment: Order Date: 12/17/23 Order Info: [id number] - CBC Performed By: #### L 100.0500, L501.9520, L500.4100, L506.1000, L500.2500, L400.0001 #### [facility] [address] [place], [address] RDW SD 39.9 fl Normal 35.1-43.9 [facility] Comment on above: Order Comment: Order Date: 12/17/23 Order Info: [id number] - CBC Performed By: #### L 100.0500, L501.9520, L500.4100, L506.1000, L500.2500, L400.0001 #### [facility] [address] [place], [address] WBC (Bld) [#/Vol] 4.7 10*3/uL Normal 4.4-11.0 [facility] Comment on above: Order Comment: Order Date: 12/17/23 Order Info: [id number] - CBC Performed By: #### L 100.0500, L501.9520, L500.4100, L506.1000, L500.2500, L400.0001 #### [facility] [address] [place], [place], [address] Lipid Profileon 02-04-2024 Cholesterol [Mass/Vol] 252 mg/dL High [address] [facility] Comment on above: Order Comment: Order Date: 12/17/23 Order Info: 0667-1 - BMP Order Info: [id number] - LIPID Order Info: 3016-3 - TSH Result Comment: <200 mg/dL Desirable 200-240 mg/dL Borderline >240 mg/dL High Risk Performed By: #### L 100.0500, L501.9520, L500.4100, L506.1000, L500.2500, L400.0001 #### [facility] [address] [place], [address] Cholesterol in HDL [Mass/Vol] 52 mg/dL Normal [facility] Comment on above: Order Comment: Order Date: 12/17/23 Order Info: 666-02 - BMP Order Info: [id number] - LIPID Order Info: 3015-04 - TSH Result Comment: The drugs N-Acetylcysteine and Metamizole may falsely depress this assay. Reference Range HDL <40 mg/dL Low HDL Cholesterol HDL >or= 60 mg/dL High HDL Cholesterol Performed By: #### L 100.0500, L501.9520, L500.4100, L506.1000, L500.2500, L400.0001 #### [facility] [address] [place], [address] Cholesterol in LDL [Mass/Vol] 169 mg/dL High 0-130 [facility] Comment on above: Order Comment: Order Date: 12/17/23 Order Info: 666-02 - BMP Order Info: 18920-0 - LIPID Order Info: 3015-04 - TSH Performed By: #### L 100.0500, L501.9520, L500.4100, L506.1000, L500.2500, L400.0001 #### [facility] [address] [place], [address] Cholesterol in VLDL [Mass/Vol] 31 mg/dL Normal 5-40 [facility] Comment on above: Order Comment: Order Date: 12/17/23 Order Info: 666-02 - BMP Order Info: 48832-9 - LIPID Order Info: 3015-04 - TSH Performed By: #### L 100.0500, L501.9520, L500.4100, L506.1000, L500.2500, L400.0001 #### [facility] [address] [place], [address] Triglyceride [Mass/Vol] 156 mg/dL Normal [facility] Comment on above: Order Comment: Order Date: 12/17/23 Order Info: 0667-1 - [facility] Order Info: [id number] - LIPID Order Info: 3016-3 - TSH Result Comment: The drugs N-Acetylcysteine and Metamizole may falsely depress this assay. Serum Triglycerides Reference Interval Normal <150 mg/dL Borderline high 150 - 199 mg/dL High 200 - 499 mg/dL Very High > or = 500 mg/dL Performed By: #### L 100.0500, L501.9520, L500.4100, L506.1000, L500.2500, L400.0001 #### [facility] [address] [place], [address] Thyroid Stim Hormone (TSH)on 02-04-2024 TSH 2.260 uIU/mL Normal 0.358-3.740 [facility] Comment on above: Order Comment: Order Date: 12/17/23 Order Info: 0667-1 - [facility] Order Info: [id number] - LIPID Order Info: 3016-3 - TSH Performed By: #### L 100.0500, L501.9520, L500.4100, L506.1000, L500.2500, L400.0001 #### [facility] [address] [place], [address] Urinalysis, Completeon 02-03 BACTERIA 0 SEEN Normal None Seen [facility] Comment on above: Order Comment: Order Date: 12/17/23 Order Info: [id number] - [facility] B[employer] ROLLER TO SPECIFY Result Comment: UTO Performed By: #### L 100.0500, L501.9520, L500.4100, L506.1000, L500.2500, L400.0001 #### [facility] [address] [place], [address] EPI,SQUAMOUS 0 SEEN Normal 5-10 [facility] Comment on above: Order Comment: Order Date: 12/17/23 Order Info: [id number] - [facility] B[employer] ROLLER TO SPECIFY Result Comment: UTO Performed By: #### L 100.0500, L501.9520, L500.4100, L506.1000, L500.2500, L400.0001 #### [facility] [address] [place], [address] Mucus Ql (Urine sed) 0 SEEN Normal [facility] Comment on above: Order Comment: Order Date: 12/17/23 Order Info: [id number] [facility] B[employer]ER ROLLER TO SPECIFY Result Comment: UTO Performed By: #### L 100.0500, L501.9520, L500.4100, L506.1000, L500.2500, L400.0001 #### [facility] [address] [place], [place], [address] (882) RBC 0 SEEN Normal 0-5 [facility] Comment on above: Order Comment: Order Date: 12/17/23 Order Info: [id number] [employer] ROLLER TO SPECIFY Result Comment: UTO Performed By: #### L 100.0500, L501.9520, L500.4100, L506.1000, L500.2500, L400.0001 #### [facility] [address] [place], [address] WBC 0 SEEN Normal 0-5 [facility] Comment on above: Order Comment: Order Date: 12/17/23 Order Info: [id number] [facility] B[employer]ER ROLLER TO SPECIFY Result Comment: UTO Performed By: #### L 100.0500, L501.9520, L500.4100, L506.1000, L500.2500, L400.0001 #### [facility] [address] [place], [place], [address] (307) BILIRUBIN URINE Normal Negative [facility] Comment on above: Order Comment: Order Date: 12/17/23 Order Info: [id number] [facility] B[employer] ROLLER TO SPECIFY Result Comment: UTO Performed By: #### L 100.0500, L501.9520, L500.4100, L506.1000, L500.2500, L400.0001 #### [facility] [address] [place], [address] Clarity (U) Normal Clear [facility] Comment on above: Order Comment: Order Date: 12/17/23 Order Info: [id number] [facility] B[employer]ER ROLLER TO SPECIFY Result Comment: UTO Performed By: #### L 100.0500, L501.9520, L500.4100, L506.1000, L500.2500, L400.0001 #### [facility] [address] [place], [address] Color (U) Normal Yellow [facility] Comment on above: Order Comment: Order Date: 12/17/23 Order Info: [id number] [facility] B[employer] ROLLER TO SPECIFY Result Comment: UTO Performed By: #### L 100.0500, L501.9520, L500.4100, L506.1000, L500.2500, L400.0001 #### [facility] [address] [place], [address] GLUCOSE, UR Normal Normal [facility] Comment on above: Order Comment: Order Date: 12/17/23 Order Info: [id number] [facility] B[employer]ER ROLLER TO SPECIFY Result Comment: UTO Performed By: #### L 100.0500, L501.9520, L500.4100, L506.1000, L500.2500, L400.0001 #### [facility] [address] [place], [address] KETONE UR Normal Negative [facility] Comment on above: Order Comment: Order Date: 12/17/23 Order Info: [id number] [facility] B[employer] ROLLER TO SPECIFY Result Comment: UTO Performed By: #### L 100.0500, L501.9520, L500.4100, L506.1000, L500.2500, L400.0001 #### [facility] [address] [place], [address] LEUK ESTERASE Normal Negative [facility] Comment on above: Order Comment: Order Date: 12/17/23 Order Info: [id number] [facility] B[employer]ER ROLLER TO SPECIFY Result Comment: UTO Performed By: #### L 100.0500, L501.9520, L500.4100, L506.1000, L500.2500, L400.0001 #### [facility] [address] [place], [address] Nitrite Ql (U) Normal Negative [facility] Comment on above: Order Comment: Order Date: 12/17/23 Order Info: [address] [place] [address] BINDER ROLLER TO SPECIFY Result Comment: UTO Performed By: #### L 100.0500, L501.9520, L500.4100, L506.1000, L500.2500, L400.0001 #### [facility] [place], [address] OCCULT BLOOD-UR Normal Negative [facility] Comment on above: Order Comment: Order Date: 12/17/23 Order Info: [id number] BINDER ROLLER TO SPECIFY Result Comment: UTO Performed By: #### L 100.0500, L501.9520, L500.4100, L506.1000, L500.2500, L400.0001 #### [facility] [address] [place], [address] pH UR Normal 5.0 - 8.0 [facility] Comment on above: Order Comment: Order Date: 12/17/23 Order Info: [id number] BINDER ROLLER TO SPECIFY Result Comment: UTO Performed By: #### L 100.0500, L501.9520, L500.4100, L506.1000, L500.2500, L400.0001 #### [facility] [address] [place], [address] PROT DIPSTX Normal Negative [facility] Comment on above: Order Comment: Order Date: 12/17/23 Order Info: [address] [place] [address] BINDER ROLLER TO SPECIFY Result Comment: UTO Performed By: #### L 100.0500, L501.9520, L500.4100, L506.1000, L500.2500, L400.0001 #### [facility] [address] [place], [address] SP.GR. DIPSTX Normal 1.002-1.030 [facility] Comment on above: Order Comment: Order Date: 12/17/23 Order Info: [id number] [facility] BINDER ROLLER TO SPECIFY Result Comment: UTO Performed By: #### L 100.0500, L501.9520, L500.4100, L506.1000, L500.2500, L400.0001 #### [facility] [address] [place], [place], [id number] (317) UR Preservative Normal [facility] Comment on above: Order Comment: Order Date: 12/17/23 Order Info: [id number] [facility] BINDER ROLLER TO SPECIFY Result Comment: UTO Performed By: #### L 100.0500, L501.9520, L500.4100, L506.1000, L500.2500, L400.0001 #### [facility] [address] [place], [place], [id number] (517) UROBILI Normal Normal [facility] Comment on above: Order Comment: Order Date: 12/17/23 Order Info: [id number] [facility] BINDER ROLLER TO SPECIFY Result Comment: UTO Performed By: #### L 100.0500, L501.9520, L500.4100, L506.1000, L500.2500, L400.0001 #### [facility] [address] [place], [place], [id number] [phone] SCRN MAMM (CAD)W/DENVER BILATo n 04-15-2023 SCRN MAMM (CAD)W/DENVER BILAT [facility] Imaging Services [address] [place] [address] SCRN MAMM (CAD)W/DENVER BILAT MR#: [id number] Acct: [id number] Name: MARIA A BEGUM Rep #: [id number] : 1970 F 52 From: Silvano odell MD PCP: Dr. Melo Roberto MD Status: [facility] Study: SCRN MAMM (CAD)W/DEN[place] BILAT Date of Exam: 03/26 04/17 Exam# [id number] Ordering Dr: Melo Roberto MD [id number] MAMMOGRAPHY - BILATERAL SCREENING REASON FOR EXAM: Female, 52 years old. Routine annual screening examination. PERTINENT HISTORY: Non-contributory. TECHNIQUE: Digital bilateral breast denver (3D mammographic acquisition) in the CC and MLO projections. 2-D mediolateral oblique (MLO) and craniocaudad (CC) views of both breasts were obtained. CAD: Full Field Digital Mammography with Computer Added Detection was performed. COMPARISON: Comparison is made with prior study dated June 20, 2018. FINDINGS: Breast Composition: The breasts are heterogeneously dense, which may obscure small masses. There are no dominant masses or suspicious calcifications. No other significant abnormalities are identified. There has been no significant change since the prior study. BI/SCRN MAMM (CAD)W/DENVER BILAT IMPRESSION: Stable bilateral screening mammogram. Yearly follow-up mammogram recommended. (A) ASSESSMENT CATEGORY: BIRADS Category 1: Negative. A letter regarding these results will be sent to the patient by the facility within 30 days. Approximately 10% of breast cancers are not detected by mammography. A normal mammogram should not delay biopsy of a clinically suspicious abnormality. [id number] Electronically Signed: Silvano Kimball MD at 15:46 EST , CC: Dr. Melo Roberto MD Learning Support Resource Room Teacher: Signed Normal [facility] Transvaginal Non-on 03-22-2023 Transvaginal Non- [facility] Imaging Services [address] [place] [address] Transvaginal Non- MR#: [id number] Acct: [id number] Name: MARIA A BEGUM Rep #: [id number] : 1970 F 52 From: Silvano odell MD PCP: Dr. Melo Roberto MD Status: REG CLI Study: Transvaginal Non- Date of Exam: Exam# [id number] Ordering Dr: Lilian Toney MD [id number] STUDY: ULTRASOUND OF THE FEMALE PELVIS - COMPLETE REASON FOR EXAM: Female, 52 years old. POLYP OF CERVIX LMP: Patient is postmenopausal. TECHNIQUE: Transvaginal TECHNICAL QUALITY: Adequate. COMPARISON: None. FINDINGS: The uterus is anteverted and is in a midline position. The uterus measures 8.1 cm x 5 cm x 4.5 cm. There is a Nabothian cyst of the cervix. The endometrium measures 2.7 mm in thickness, and is hyperechoic. There is no demonstrated endometrial mass. 2 fibroids are seen. The larger is in the superior aspect of the uterus and measures 2.4 cm x 2.4 cm x 2.1 cm. I.U.D. - The patient does not have an I.U.D. The right ovary is non-visualized. The left ovary is non-visualized. There is no fluid in the cul-de-sac. US/Transvaginal Non- IMPRESSION: 2 small fibroids are seen in the superior aspect of the uterus. No cervical polyp is visualized. Electronically Signed: Silvano Kimball MD at 14:51 EST , CC: Dr. Melo Roberto MD; Dr. Lilian Pickard MD Learning Support Resource Room Teacher: Signed Normal [facility] Basophil percentageOrdered B y: Melo Roberto on 12-24-2022 Chloride [Moles/Vol] 107 mmol/L 98-107 [facility] Cholesterol [Mass/Vol] 250 mg/dL <[address] [facility] Comment on above: <200 mg/dL Desirable 200-240 mg/dL Borderline >240 mg/dL High Risk Glucose [Mass/Vol] 93 mg/dL 74-106 [facility] Potassium [Moles/Vol] 4.1 mmol/L 3.5-5.1 [facility] Sodium [Moles/Vol] 138 mmol/L 136-145 [facility] Triglyceride [Mass/Vol] 167 mg/dL <199 [facility] Comment on above: The drugs N-Acetylcy steine and Metamizole may falsely depress this assay.Serum Triglycerides Reference Interval Normal <150 mg/dL Borderline high 150 - 199 mg/dL High 200 - 499 mg/dL Very High > or = 500 mg/dL Laboratory - Chemistry and C hemistry - challengeOrdered By: Melo Roberto on 12-24-2022 CO2 [Moles/Vol] 28.0 mmol/L 21.0-32.0 [facility] Urea nitrogen/Creatinine [Mass ratio] 17.3 mg/mg 10-20 [facility] No Panel InformationOrdered By: Melo Roberto on 12-24-2022 Estimated GFR (MDRD) Amer 71 mL/min >60 [facility] Comment on above: GFR Calc Estimated GFR (MDRD) Non-Af Amer 59 mL/min >60 [facility] Comment on above: Non- GFR Calc Thyroid Stimulating Hormone (TSH) 2.21 uIU/mL 0.358-3.74 [facility] Vitamin D 25-Hydroxy 70.0 ng/mL [facility] Comment on above: Vitamin D 25(OH) Sta tus Range Deficiency <20 ng/mL (50nmol/L) Insufficiency 20 - 30 ng/mL (50 - 75 nmol/L) Sufficiency 30 - 100 ng/mL (75 - 250 nmol/L) Toxicity >100 ng/mL (>250 nmol/L) Serum or plasma calcium shauna urement (mass/volume)Ordered By: Melo Roberto on 12-24-2022 Calcium [Mass/Vol] 9.4 mg/dL 8.5-10.1 [facility] Serum or plasma cholesterol in HDL measurement (mass/volume)Ordered By: Melo Roberto on 12-24-2022 Cholesterol in HDL [Mass/Vol] 54 mg/dL >40 [facility] Comment on above: The drugs N-Acetylcy steine and Metamizole may falsely depress this assay. Reference Range HDL <40 mg/dL Low HDL Cholesterol HDL >or= 60 mg/dL High HDL Cholesterol Serum or plasma cholesterol in VLDL measurement (mass/volume)Ordered By: Melo Roberto on 12-24-2022 Cholesterol in VLDL [Mass/Vol] 33 mg/dL 5-40 [facility] Serum or plasma creatinine m easurement (mass/volume)Ordered By: Melo Roberto on 12-24-2022 Creatinine [Mass/Vol] 1.04 mg/dL 0.55-1.02 [facility] Comment on above: The validity of the calculated GFR & GFRAA in patients over 70 years has not been determined. Clinical correlation is essential. Serum or plasma low density lipoprotein (LDL) cholesterol measurement (mass/volume)Ordered By: Melo Roberto on 12-24-2022 Cholesterol in LDL [Mass/Vol] 163 mg/dL 0-130 [facility] Serum or plasma urea nitroge n measurement (mass/volume)Ordered By: Melo Roberto on 12-24-2022 Urea nitrogen [Mass/Vol] 18 mg/dL 7-18 [facility] Thin prep Papanicolaou smear with manual screeningOrdered By: Melo Roberto on 12-24-2022 Thin prep Papanicolaou smear with manual screening 3 5-15 [facility] Basophil percentageon 2021 Chloride [Moles/Vol] 107 mmol/L 98-107 [facility] Work Phone: Cholesterol [Mass/Vol] 248 mg/dL <200 [facility] Work Phone: Comment on above: <200 mg/dL Desirable 200-240 mg/dL Borderline >240 mg/dL High Risk Glucose [Mass/Vol] 91 mg/dL 74-106 [facility] Work Phone: Potassium [Moles/Vol] 4.3 mmol/L 3.5-5.1 [facility] Work Phone: Sodium [Moles/Vol] 140 mmol/L 136-145 [facility] Work Phone: Triglyceride [Mass/Vol] 160 mg/dL <199 [facility] Work Phone: Comment on above: The drugs N-Acetylcy steine and Metamizole may falsely depress this assay.Serum Triglycerides Reference Interval Normal <150 mg/dL Borderline high 150 - 199 mg/dL High 200 - 499 mg/dL Very High > or = 500 mg/dL Laboratory - Chemistry and C hemistry - challengeon 12-18-2021 CO2 [Moles/Vol] 28.0 mmol/L 21.0-32.0 [facility] Work Phone: Urea nitrogen/Creatinine [Mass ratio] 15.8 mg/mg 10- [facility] Work Phone: No Panel Informationon 12-18 Estimated GFR (MDRD) Amer 74 mL/min >60 [facility] Work Phone: Comment on above: GFR Calc Estimated GFR (MDRD) Non-Af Amer 61 mL/min >60 [facility] Work Phone: Comment on above: Non- GFR Calc Thyroid Stimulating Hormone (TSH) 1.91 uIU/mL 0.358-3.74 [facility] Work Phone: Vitamin D 25-Hydroxy 68.5 ng/mL [facility] Work Phone: Comment on above: Vitamin D 25(OH) Sta tus Range Deficiency <20 ng/mL (50nmol/L) Insufficiency 20 - 30 ng/mL (50 - 75 nmol/L) Sufficiency 30 - 100 ng/mL (75 - 250 nmol/L) Toxicity >100 ng/mL (>250 nmol/L) Serum or plasma calcium shauna urement (mass/volume)on 12-18-2021 Calcium [Mass/Vol] 9.7 mg/dL 8.5-10.1 [facility] Work Phone: Serum or plasma cholesterol in HDL measurement (mass/volume)on 12-18-2021 Cholesterol in HDL [Mass/Vol] 49 mg/dL >40 [facility] Work Phone: Comment on above: The drugs N-Acetylcy steine and Metamizole may falsely depress this assay. Reference Range HDL <40 mg/dL Low HDL Cholesterol HDL >or= 60 mg/dL High HDL Cholesterol Serum or plasma cholesterol in VLDL measurement (mass/volume)on 12-18-2021 Cholesterol in VLDL [Mass/Vol] 32 mg/dL 5-40 [facility] Work Phone: Serum or plasma creatinine m easurement (mass/volume)on 12-18-2021 Creatinine [Mass/Vol] 1.01 mg/dL 0.55-1.02 [facility] Work Phone: Comment on above: The validity of the calculated GFR & GFRAA in patients over 70 years has not been determined. Clinical correlation is essential. Serum or plasma low density lipoprotein (LDL) cholesterol measurement (mass/volume)on 12-18-2021 Cholesterol in LDL [Mass/Vol] 167 mg/dL 0-130 [facility] Work Phone: Serum or plasma urea nitroge n measurement (mass/volume)on 12-18-2021 Urea nitrogen [Mass/Vol] 16 mg/dL 7-18 [facility] Work Phone: Thin prep Papanicolaou smear with manual screeningon 12-18-2021 Thin prep Papanicolaou smear with manual screening 5 5-15 [facility] Work Phone: Encounters Encounter Date Encounter Type Care Provider Facility Start: 03-06-2024 Encounter for genera l adult medical examination without abnormal findings Bernabe Roberto [facility] Start: 02-04-2024 End: 02-04-2024 ambulatory [facility] Facility:[facility] Start: 04-15-2023 End: 04-15-2023 ambulatory [facility] Facility:[facility] Start: 03-22-2023 End: 03-22-2023 ambulatory [facility] Work Phone: Start: 03-22-2023 End: 03-22-2023 Patient encounter procedure [facility]-Ultrasound, [facility] Work Phone: Start: 03-22-2023 End: 03-22-2023 ambulatory [facility] Facility:[facility] Start: 12-24-2022 End: 12-24-2022 ambulatory [facility] Work Phone: Start: 12-24-2022 End: 12-24-2022 [facility] Start: 12-18-2021 End: 12-18-2021 ambulatory [facility] Work Phone: Start: 12-18-2021 End: 12-18-2021 Patient encounter procedure [facility] Procedures Date Procedure Procedure Detail Performing Clinician Start: 03-22-2023 Transvaginal echography Payers Date Payer Category Payer Self-pay [id number] 2016 Unknown ANTHEM [id number] 2016 Unknown [id number] Unknown [id number] Unknown [id number] Unknown [id number] Social History Date Type Detail Facility Start: 01-24-2021 End: 01-24-2021 Tobacco smoking status LAIS Unknown if ever smoked [facility] Start: 1970 Sex Assigned At Female [facility] Evaluation note Note Date & Type Note Facility Evaluation note No assessment information availa ble [facility] Work Phone: Chief Complaint and Reason for Visit Chief Complaint EORDER Chief Complaint EORDER POLYP OF CERVIX Advance Directives No Advanced Directives Records Found Advance Directive Response Recorded Date/ Time Advance Directives No December 11:29am Living Will No June 19, 2018 5:53pm Power of French Instructor No June 19 5:53pm Advance Directive Response Recorded Date/ Time Advance Directives No December 10:29am Living Will No June 19, 2018 4:53pm Power of French Instructor No June 19 4:53pm Summary Purpose Family History No Family History Records Found Additional Source Comments Goals (unrecognized section and content) Goals may be documented in a n alternate sectionGoals may be documented in an alternate sectionGoals may be documented in an alternate section Care Teams (unrecognized sec tion and content) Team Status: Active Member Role Status Dates Dr. Melo Roberto MD Family Provider Active Dr. Melo Roberto MD Primary Care Provider Activ e Team Status: Inactive Member Role Status Dates Dr. Melo Roberto MD Primary Care Provider, Attending Provider, Referring Provider Active Team Status: Inactive Member Role Status Dates Dr. Melo Roberto MD Primary Care Provider Activ e Dr. Lilian Pickard MD Attending Provider, Refer ring Provider Active INFORMATION SOURCE (unrecogn ized section and content) DATE CREATED AUTHOR 03/09/2024 [facility] FOR RECORDS PERTAINING TO PATIENTS WHO ARE OR HAVE BEEN ENROLLED IN A CHEMICAL DEPENDENCY/SUBSTANCEABUSE PROGRAM, SOME INFORMATION MAY BE OMITTED. This clinical summary was aggregated from multiple sources. Caution should be exercised in using it in the provision of clinical care. This summary normalizes information from multiple sources, and as a consequence, information in this document may materially change the coding, format and clinical context of patient data. In addition, data may be omitted in some cases. CLINICAL DECISIONS SHOULD BE BASED ON THE PRIMARY CLINICAL RECORDS. [facility] [employer] [facility] provides no warranty or guarantee of the accuracy or completeness of information in this document.
== END | disposition home or self-care (01) ==
LOC: MFPLAB 10:41
PROVIDERS: PCP Family Medicine; Visit Provider Family Medicine
DX: Z00.00 Encounter for general adult medical examination without abnormal findings (principal)
CPT/HCPCS: 36415; 80048; 80061; 82306; 83540; 83970; 84443; 85025